=== PATIENT | female | born 1985 | race Caucasian/White ===

== ENCOUNTER 2018-05-31 15:59 | Observation (INO) | payer BC ==
--- NOTE | 2018-05-31 17:12 | OBPROG ---
Labor Progress Note Assessment/Plan: Assessment: IUP at 35+ wks vaginal bleeding after intercourse per pt - no previa Plan: monitoring, d/c home 05/31/18 17:09 05/31/18 17:16 Subjective/Intrapartum Course: 05/31/18 17:10 pt not seen 05/31/18 17:12 reported to RN that bld occurred after sex - quickly tapering. GFM, BOWI - Contraction Pattern Assessment Current Contraction Pattern: Other (Specify) (no sign of labor) - FHR Assessment Deshpande FHR (bpm): 130 FHR Pattern Variability: Moderate FHR Category: 1 Oxytocin Orders Assessment - Pre-Induction/Augmentation Assessment Gestational Age: 35 week(s) and 5 day(s) ICD10 Worksheet Patient Problems: Problems Problem Status Onset Vaginal bleeding Acute - ICD10 Problem Qualifiers (1) Vaginal bleeding
== END 2018-05-31 16:56 | disposition home or self-care (01) ==
LOC: FLD 15:59
PROVIDERS: ADMIT Obstetrics & Gynecology; ATTEND Obstetrics & Gynecology
DX: O26.853 Spotting complicating pregnancy, third trimester (principal); Z3A.35 35 weeks gestation of pregnancy
CPT/HCPCS: G0378

== ENCOUNTER 2018-06-22 05:40 | Inpatient (IN) | payer BC ==
[2018-06-22] MEDS ORDERED: IBUPROFEN 600 MG TAB PO PRN (07:44)
[2018-06-22] MEDS ORDERED: MISOPROSTOL 200 MCG TAB PR PRN (07:44)
[2018-06-22] MEDS ORDERED: EPSOM SALT 454 GM TP PRN (07:44)
[2018-06-22] MEDS ORDERED: LIDOCAINE 1% 300 MG/30 ML SDV SC PRN (07:44)
[2018-06-22] MEDS ORDERED: LR 1,000 ML IV PRN (07:44)
[2018-06-22] MEDS ORDERED: OXYTOCIN/RINGERS LACTATE 1,000 ML IV PRN (07:44)
[2018-06-22] MEDS ORDERED: OLIVE OIL 118 ML BTL MISC PRN (07:44)
[2018-06-22 09:12] LABS: PLATELET COUNT 220 10^3/uL (150-400)
[2018-06-22] MEDS ORDERED: LIDOCAINE 1% 300 MG/30 ML SDV ONE (09:23)
[2018-06-22] MEDS ORDERED: OLIVE OIL 118 ML BTL MISC ONE (09:23)
[2018-06-22] MEDS ORDERED: AMMONIA AROMATIC 1 EACH AMP IH ONE (09:23)
[2018-06-22] MEDS ORDERED: TERBUTALINE SULFATE 1 MG/ML VIAL ONE (09:23)
[2018-06-22] MEDS ORDERED: MISOPROSTOL 200 MCG TAB ONE (09:24)
[2018-06-22] MEDS ORDERED: LR 500 ML IV PRN (09:42)
[2018-06-22] MEDS ORDERED: OXYTOCIN/RINGERS LACTATE 500 ML IV SCH (10:00)
--- NOTE | 2018-06-22 11:08 | GHP ---
[f rep st] PREOP HISTORY AND PHYSICAL DATE OF ADMISSION: 06/22/2018 ADMISSION DIAGNOSES: 1. Intrauterine at 38 and 6/7 weeks gestation. 2. Spontaneous premature rupture of membranes. HISTORY: Patient is a 33-year-old, 1, para 0, who is 38 and 6/7 weeks gestation. She is britton ed by last menstrual period of 09/07/2017, consistent with a 12-week ultrasound. Patient initiated p renatal care with [facility] at 20 weeks' gestation. She had regular care with us from that time. Patient states her leaking clear fluid at 5 o'clock this morning, and there is slig ht pink tinge to it, she has been having slightly increasing in frequency and intensity contractions. MEDICAL HISTORY: Significant for anxiety and history of cervical dysplasia. MEDICATIONS: vitamins and DHA. SURGICAL HISTORY: [place] teeth extraction, LEEP excision of her cervix. ALLERGIES: No known drug allergies. SOCIAL HISTORY: Patient is . She denies tobacco, alcohol, or drug use. FAMILY MEDICAL HISTORY: Noncontributory. [employer]IL [employer]TAINER HISTORY: Menarche age 9. Periods every 28 days lasting 5 days. She is a 1, para 0. Current , she has been followed for large for gestational age on ultrasound. She had an es timated weight of 93rd percentile on her anatomy ultrasound. At 36 weeks, she had a repeat ult rasound showed an estimated weight of the 52nd percentile, with a BPD of 97th percentile. Abdo eveline circumference of 48 percentile and femur length of 24th percentile. Remainder of was uncomplicated. Patient does have a history of cervical dysplasia. She had a LEEP excision. Repeat Pap smears have been normal. She has a history of HPV but denies any history of any other sexually transmitted diseases. REVIEW OF SYSTEMS: A 10-point review of systems is negative except for a positive leaking of fluid a nd positive contractions. She denies any headaches or changes in vision. There is good moveme nt. She denies any nausea or vomiting. PHYSICAL EXAMINATION: VITAL SIGNS: Patient's vital signs are stable. GENERAL APPEARANCE: Alert an d oriented x3. MUSCULOSKELETAL: Grossly intact. NEURO: Grossly intact. PSYCH: Appropriate affec t. HEART: Regular. LUNGS: Clear to auscultation bilaterally. ABDOMEN: Gravid, nondistended, non tender. EXTREMITIES: Reveal no calf tenderness or edema. PELVIC: Cervical exam by the nurse, she is 3 to 4 cm dilated, 95% effaced, and -2 station. heart tracing is category 1. LABS: Blood type O positive. Antibody screen negative. Rubella is pending. GBS is negati ve. She declined any genetic testing. Her 50 g glucose was 106. ASSESSMENT AND PLAN: A 33-year-old, 1, para 0, at 38 and 6/7 weeks gestation with premature rupture of membranes. She is agreeable to starting Pitocin. status is reassuring. She will d ecide on pain management as it becomes relevant. /[id number]/MODL
[2018-06-22] MEDS ORDERED: fentaNYL 100 MCG/2 ML INJ IVP ONE (12:00)
[2018-06-22] MEDS ORDERED: PHENYLEPHRINE HCL 100 MCG/ML SYR IVP PRN (12:49)
--- NOTE | 2018-06-22 12:49 | PREANESOB ---
Obstetric Pre-Anesthesia Info - General Info Proposed Procedure: DALILA : 1 Para: 0 BANDAR: 06/30/18 Gestational Age: 38 week(s) and 6 day(s) - Info Status: Full Term, Deshpande Monitors: External FHR Pattern: Reassuring - Labor Status Rupture of Membranes Date: 06/22/18 Rupture of Membranes Time: 05:00 PIH: No Indications for Labor Analgesia: Pain Control Labor Epidural: Proposed Anesthesia Allergies/Adverse Reactions: Allergy/AdvReac Type Severity Reaction Status Date / Time No Known Allergies Allergy Unverified 05/31/18 16:15 Visit Medications: Generic Name Dose Route Start Last Admin Trade Name Freq PRN Reason Stop Dose Admin Lactated Ringer's 1,000 mls @ 0 mls/hr 06/22/18 07:44 06/22/18 10:15 Lr IV 06/23/18 07:43 1,000 mls PRN PRN Administration SEE PROTOCOL CONDITIONS Protocol Per Protocol Oxytocin/Lactated Ringer's 1,000 mls @ 125 mls/hr 06/22/18 07:44 Pitocin 20 Units/Lr (Premix) IV PRN PRN Post bleeding Lactated Ringer's 500 mls @ 500 mls/hr 06/22/18 09:42 Lr IV 06/23/18 09:42 PRN PRN Maternal Hypotension Oxytocin/Lactated Ringer's 500 mls @ 0 mls/hr 06/22/18 10:00 06/22/18 10:17 Pitocin 30 Units/Lr (Premix) IV 12/19/18 09:59 500 mls CONT MATTHEW Administration Protocol Per Protocol Ibuprofen 600 mg 06/22/18 07:44 Motrin PO ONCE PRN post , pain Lidocaine HCl 300 mg 06/22/18 07:44 Lidocaine Hcl 1% SC 12/19/18 07:43 ONCE PRN episiotomy Magnesium Sulfate 454 gm 06/22/18 07:44 Epsom Salt TP 12/19/18 07:43 Q1H PRN perineal discomfort Misoprostol 800 - 1,000 mcg 06/22/18 07:[address] ONCE PRN Vaginal Atony/Bleeding [place] Oil 118 ml 06/22/18 07:44 Sweet Oil MISC 12/19/18 07:43 ONCE PRN perineal massage Discontinued Medications Generic Name Dose Route Start Last Admin Trade Name Freq PRN Reason Stop Dose Admin Ammonia (Aromatic Spirit) Confirm 06/22/18 09:23 Ammonia Aromatic Administered 06/22/18 09:24 Dose 1 each IH .STK-MED ONE Fentanyl 50 mcg 06/22/18 12:00 06/22/18 12:15 Sublimaze IVP 06/22/18 12:01 50 mcg ONCE ONE Administration Lidocaine HCl Confirm 06/22/18 09:23 Lidocaine Hcl 1% Administered 06/22/18 09:24 Dose 300 mg .ROUTE .STK-MED ONE Misoprostol Confirm 06/22/18 09:24 Cytotec Administered 06/22/18 09:25 Dose 1,000 mcg .ROUTE .STK-MED ONE [place] Oil Confirm 06/22/18 09:23 Sweet Oil Administered 06/22/18 09:24 Dose 118 ml MISC .STK-MED ONE Terbutaline Sulfate Confirm 06/22/18 09:23 Brethine Administered 06/22/18 09:24 Dose 1 mg .ROUTE .STK-MED ONE - Anesthesia History Response to Local Anesthetics: Normal Anesthesia & Operative History: No Prior Problems - Vital Signs Height/Weight (Nursing): Height 165.1 cm Weight 82.1 kg - Focused Exam Neck exam: FROM Mallampati Score: Class 2 Mouth exam: normal dental/mouth exam Pulmonary: no respiratory distress, no rales or rhonchi, clear to auscultation Cardiovascular: regular rate and rhythym, no murmur, rub, or gallop Labs: 06/22/18 08:50 Patient ABO/Rh O POSITIVE 06/22/18 08:50
[2018-06-22] MEDS ORDERED: BUPIVACAINE 0.25% 10 ML SDV ONE (12:51)
[2018-06-22] MEDS ORDERED: PHENYLEPHRINE HCL 100 MCG/ML SYR ONE (12:51)
[2018-06-22] MEDS ORDERED: LR 500 ML IV SCH (13:00)
[2018-06-22] MEDS ORDERED: fentaNYL 2MCG/ML/BUP 0.1% RTU 100 ML EP SCH (13:00)
[2018-06-22] MEDS ORDERED: fentaNYL 200 MCG, BUPIVACAINE 0.5% 20 ML in NS 100 ML EP SCH (13:30)
--- NOTE | 2018-06-22 13:51 | OBPROG ---
Labor Progress Note Assessment/Plan: Assessment: Plan: Subjective/Intrapartum Course: 06/22/18 13:49 patient got epidural. checked right after. patinet anterior lip/100 and +1. will let patient rest and then will begin pushing when complete. status reassuring. Objective: 06/22/18 08:50 Patient ABO/Rh O POSITIVE 06/22/18 08:50 - SVE Dilation (cm): 9, 10 Effacement (%): 100 Station: +1 Membranes: SROM Amniotic Fluid Color: Clear - Contraction Pattern Assessment Current Contraction Pattern: Regular Oxytocin Orders Assessment - Pre-Induction/Augmentation Assessment Gestational Age: 38 week(s) and 6 day(s) ICD10 Worksheet Patient Problems: Problems Problem Status Onset Vaginal bleeding Acute
[2018-06-22] MEDS ORDERED: SIMETHICONE 80 MG TAB CHEW PO PRN (16:08)
[2018-06-22] MEDS ORDERED: HYDROCORTISONE 0.5% CREAM TP PRN (16:08)
[2018-06-22] MEDS ORDERED: oxyCODONE IR 5 MG TAB PO PRN (16:09)
--- NOTE | 2018-06-22 16:13 | OBDEL ---
Info Type: Vaginal Presentation at Delivery: Vertex L&D Analgesia/Anesthesia Type: Epidural GBS+: No Intrapartum Medications: Generic Name Dose Route Start Last Admin Trade Name Freq PRN Reason Stop Dose Admin Lactated Ringer's 1,000 mls @ 0 mls/hr 06/22/18 07:44 06/22/18 10:15 Lr IV 06/23/18 07:43 1,000 mls PRN PRN Administration SEE PROTOCOL CONDITIONS Protocol Per Protocol Oxytocin/Lactated Ringer's 500 mls @ 0 mls/hr 06/22/18 10:00 06/22/18 10:17 Pitocin 30 Units/Lr (Premix) IV 12/19/18 09:59 500 mls CONT MATTHEW Administration Protocol Per Protocol Discontinued Medications Generic Name Dose Route Start Last Admin Trade Name Freq PRN Reason Stop Dose Admin Fentanyl 50 mcg 06/22/18 12:00 06/22/18 12:15 Sublimaze IVP 06/22/18 12:01 50 mcg ONCE ONE Administration - Hospital Course Intrapartum: 06/22/18 13:49 patient got epidural. checked right after. patinet anterior lip/100 and +1. will let patient rest and then will begin pushing when complete. status reassuring. Indications for Delivery: SROM Vaginal Delivery - Delivery Provider Delivery Physician/CNM: Geovanna Joy - Labor and Delivery Onset of Contractions Date: 06/22/18 Onset of Contractions Time: 11:30 Onset of Contractions Type: Augmented Rupture of Membranes Date: 06/22/18 Rupture of Membranes Time: 05:00 Rupture of Membranes Type: Premature Amniotic Fluid Color: Clear Dilation Complete Date: 06/22/18 Dilation Complete Time: 14:20 Placenta Delivery Date: 06/22/18 Placenta Delivery Time: 15:44 Total Hours of Labor: 4 Laceration: 1st Degree, Other (Specify) (bilateral labial) Vaginal Sponge Count Correct: Yes Vaginal Needle Count Correct: Yes Delivery Events: Other (Specify) (post atony resolved with cytotec) Delivery Comment: srom this am. arrived and was 4 cm. positive amnisure. pitocin started. epdural. rapid progress to complete - Medications Labor Augmentation/Induction Methods Used: Pitocin Labor Augmentation/Induction Indication: Other (Specify) (premature rupture of membrane) Ceiba Data BANDAR: 06/30/18 Gestational Age: 38 week(s) and 6 day(s) Deshpande Delivery Date: 06/22/18 Delivery Time: 15:40 Sex of Infant: Male Score (1 Min): 8 Score (5 Min): 9 ICD10 Worksheet Patient Problems: Problems Problem Status Onset Vaginal bleeding Acute
[2018-06-22] MEDS ORDERED: LR 1,000 ML IV ONE (20:00)
[2018-06-22] MEDS: DOCUSATE SODIUM 100 MG CAP PO PRN (22:30)
[2018-06-22] MEDS: IBUPROFEN 600 MG TAB PO PRN (22:31)
[2018-06-22] MEDS: ACETAMINOPHEN 325 MG TAB PO PRN (22:31)
--- NOTE | 2018-06-22 22:34 | OBPP ---
Progress Note Assessment/Plan: Assessment: Plan: Subjective/ Course: 06/22/18 22:26 patient had an elevated heart rate post . urine was concentrated at delivery when terry was removed. patient was given 1 l IV fluid bolus and heart rate decreased to 100. patient is feeling better and voiding a large amount. Objective: 06/22/18 08:50 Patient ABO/Rh O POSITIVE 06/22/18 08:50 Temp Pulse Resp BP Pulse Ox 37.1 C 127 H 18 121/78 H 96 06/22/18 18:45 06/22/18 18:45 06/22/18 18:45 06/22/18 18:45 06/22/18 18:45
[2018-06-23] MEDS: ACETAMINOPHEN 325 MG TAB PO PRN ×4 (05:22→23:42)
[2018-06-23] MEDS: IBUPROFEN 600 MG TAB PO PRN ×4 (05:22→23:42)
[2018-06-23] MEDS: DOCUSATE SODIUM 100 MG CAP PO PRN ×2 (08:54→23:42)
--- NOTE | 2018-06-23 12:32 | OBPP ---
Progress Note Assessment/Plan: Assessment: 33 y/o PPD #1 s/p doing well Plan: Iron QD, Routine PPC and support. 06/23/18 12:31 Subjective/ Course: 06/22/18 22:26 patient had an elevated heart rate post . urine was concentrated at delivery when terry was removed. patient was given 1 l IV fluid bolus and heart rate decreased to 100. patient is feeling better and voiding a large amount. 06/23/18 12:30 Pt is doing well today. Her tachycardia resolved after 1L bolus. She is ambulating and voiding without difficulty and has min lochia. Ibuprofen and Tylenol are controlling her pain. Breast feeding is going well. Objective: 06/22/18 08:50 Patient ABO/Rh O POSITIVE 06/22/18 08:50 Temp Pulse Resp BP Pulse Ox 36.3 C 89 16 108/71 97 06/23/18 08:00 06/23/18 08:00 06/23/18 08:00 06/23/18 08:00 06/23/18 08:00 Uterine Position/Fundal Height: Umbilicus -2 Uterine Tone: Firm Physical Exam - Physical Exam General Appearance: WD/WN, alert, no apparent distress Neck: non-tender, full range of motion, supple Respiratory: chest non-tender, lungs clear, normal breath sounds Cardiac/Chest: regular rate, rhythm Abdomen: normal bowel sounds Extremities: swelling (no), Mg's sign (neg)
--- NOTE | 2018-06-23 16:32 | POSTANESTH ---
Post Anesthetic Evaluation Cardiovascular Status: Normal, Stable Respiratory Status: Normal, Stable Level of Consciousness/Mental Status: Can Participate in Eval Pain Control: Adequate, Prn Tx Ordered Nausea/Vomiting Control: Adequate, Prn Tx Ordered Complications Possibly Related to Anesthesia: None Noted (no issues with DALILA, denies adverse effects, ambulating and tolerating PO well)
[2018-06-24] MEDS: ACETAMINOPHEN 325 MG TAB PO PRN ×2 (06:17→12:54)
[2018-06-24] MEDS: IBUPROFEN 600 MG TAB PO PRN ×2 (06:18→12:54)
[2018-06-24 08:42] VITALS: BP 105/66
[2018-06-24] MEDS ORDERED: FERRO-SEQUELS 65 MG TAB.ER PO SCH (09:00)
[2018-06-24] MEDS ORDERED: MEASLES,MUMPS&RUBELLA VACC/PF 0.5 ML VIAL SC ONE (11:29)
--- NOTE | 2018-06-24 11:33 | OBPP ---
Progress Note Assessment/Plan: Assessment: 1) 33 y/o G1 now P1 s/p PPD # 2 - pt is stable 2) Anemia - pt is asymptomatic 3) Rubella NI Plan: Will give MMR prior to discharge Plan for d/c home today Instructions reviewed with pt No Rx given Pelvic rest Cont PNV, iron and colace RTC in 3 weeks for a mood check and 6 weeks for a pp visit 06/24/18 11:29 Subjective/ Course: 06/22/18 22:26 patient had an elevated heart rate post . urine was concentrated at delivery when terry was removed. patient was given 1 l IV fluid bolus and heart rate decreased to 100. patient is feeling better and voiding a large amount. 06/23/18 12:30 Pt is doing well today. Her tachycardia resolved after 1L bolus. She is ambulating and voiding without difficulty and has min lochia. Ibuprofen and Tylenol are controlling her pain. Breast feeding is going well. 06/24/18 11:31 Pt seen and examined. Doing well, no complaints. Her bottom is sore. Mild cramping. Mod lochia. Pt is OOB, tammy regular diet, voiding without difficulty, and had a BM today. BF is going well. Ready to go home. Objective: 06/22/18 08:50 Patient ABO/Rh O POSITIVE 06/22/18 08:50 Temp Pulse Resp BP Pulse Ox 36.3 C 81 16 105/66 98 06/24/18 08:00 06/24/18 08:00 06/24/18 08:00 06/24/18 08:00 06/24/18 08:00 Uterine Position/Fundal Height: Umbilicus -2 Uterine Tone: Firm Physical Exam - Physical Exam General Appearance: WD/WN, alert, no apparent distress Respiratory: lungs clear, normal breath sounds Cardiac/Chest: regular rate, rhythm Abdomen: normal bowel sounds, non-tender, soft, flatus (+) Extremities: non-tender, normal inspection Skin: normal color, warm/dry Neuro/Psych: alert, normal mood/affect, oriented x 3
--- NOTE | 2018-06-24 11:34 | OBGCSDC ---
General Delivery Information - General Info : 1 Para: 1 Abortions: 0 Type: Vaginal L&D Analgesia/Anesthesia Type: Epidural, Local Admission Date: 06/22/18 Labs: Patient ABO/Rh O POSITIVE 06/22/18 08:50 Hct 35.5 % (38.0-47.0) L 06/22/18 08:50 - Hospital Course Intrapartum: 06/22/18 13:49 patient got epidural. checked right after. patinet anterior lip/100 and +1. will let patient rest and then will begin pushing when complete. status reassuring. : 06/22/18 22:26 patient had an elevated heart rate post . urine was concentrated at delivery when terry was removed. patient was given 1 l IV fluid bolus and heart rate decreased to 100. patient is feeling better and voiding a large amount. 06/23/18 12:30 Pt is doing well today. Her tachycardia resolved after 1L bolus. She is ambulating and voiding without difficulty and has min lochia. Ibuprofen and Tylenol are controlling her pain. Breast feeding is going well. 06/24/18 11:31 Pt seen and examined. Doing well, no complaints. Her bottom is sore. Mild cramping. Mod lochia. Pt is OOB, tammy regular diet, voiding without difficulty, and had a BM today. BF is going well. Ready to go home. Vaginal - Delivery Provider Delivery Physician/CNM: Geovanna Joy - Diagnosis Labor: Augmented Rupture of Membranes Type: Premature Amniotic Fluid Color: Clear Laceration: 1st Degree, Other (Specify) (bilateral labial) Delivery Events: Other (Specify) (post atony resolved with cytotec) Data BANDAR: 06/30/18 Gestational Age: 39 week(s) and 1 day(s) Deshpande Delivery Date: 06/22/18 Delivery Time: 15:40 Sex of : Male [place] Weight (gm): 3748 g Score (1 Min): 8 Score (5 Min): 9 Discharge Information - Discharge Information Condition: Good Instruction/Follow Up: Four Weeks (3-4 weeks for a mood check), Six Weeks (for a routine visit)
== END 2018-06-24 13:40 | disposition home or self-care (01) | DRG 998 ==
LOC: FLD 05:40 → OBSVTOIN 07:45 → FOB 18:15
PROVIDERS: ADMIT Hospitalist; ATTEND Obstetrics & Gynecology
PROC: 10E0XZZ Delivery of Products of Conception, External Approach (ICD-10-PCS; principal; 2018-06-22)
DX: O99.344 Other mental disorders complicating childbirth (principal); F41.9 Anxiety disorder, unspecified; Z87.410 Personal history of cervical dysplasia; Z23 Encounter for immunization
CPT/HCPCS: J2370; J2590; J3010; J3105